=== PATIENT | female | born 1980 | race Caucasian/White ===

== ENCOUNTER → 2020-11-09 10:39 | Outpatient (BNVA) | payer OTHER, SELFPAY | PROVIDERS: PCP Family Medicine; Visit Provider Specialist | DX: F07.81 Postconcussional syndrome (principal); G37.9 Demyelinating disease of central nervous system, unspecified; H46.9 Unspecified optic neuritis | CPT/HCPCS: 99205 ==

== ENCOUNTER → 2021-01-03 11:52 | Outpatient (BNVA) | payer OTHER, SELFPAY | PROVIDERS: PCP Family Medicine; Visit Provider Specialist | DX: F07.81 Postconcussional syndrome (principal); G37.9 Demyelinating disease of central nervous system, unspecified | CPT/HCPCS: 99215 ==